=== PATIENT | female | born 1980 | race American Indian/Alaskan Native ===

== ENCOUNTER 2019-01-22 20:20 | Emergency (ER) | payer SELFPAY ==
[2019-01-22 20:46] VITALS: RESP 20
[2019-01-22] MEDS ORDERED: Sodium Chloride 0.9% 1,000 ML IV ONE (22:05)
--- NOTE | 2019-01-22 22:09 | C.PDOC ---
History Of Present Illness 38 y/o female presents to the ED complaining of colicky epigastric pain radiating to her back since earlier this afternoon. Patient states she took Imodium and Excedrin without any relief. She admits she had similar symptoms last week, and soon after developed diarrhea. Patient reports diet consists of pancakes, banana, pasta, and corn in the last 24 hours. She denies having any vomiting, diarrhea, or urinary complaints today. No fever or chills. Time Seen by Provider: 01/22/19 21:58 Chief Complaint (Nursing): Chest Pain History Per: Patient History/Exam Limitations: no limitations Onset/Duration Of Symptoms: Hrs Current Symptoms Are (Timing): Still Present Past Medical History Reviewed: Historical Data, Nursing Documentation, Vital Signs Vital Signs: Last Vital Signs Temp 97.8 F 01/22/19 20:43 Pulse 105 H 01/22/19 20:43 Resp 20 01/22/19 20:43 BP 128/71 01/22/19 20:43 Pulse Ox 97 01/22/19 20:43 - Medical History PMH: No Chronic Diseases Other Surgeries: Breast augmentation Family History: States: Unknown Family Hx - Social History Hx Tobacco Use: No Hx Alcohol Use: No Hx Substance Use: No - Immunization History Hx Tetanus Toxoid Vaccination: No Hx Influenza Vaccination: No Hx Pneumococcal Vaccination: No Review Of Systems Constitutional: Negative for: Fever, Chills Cardiovascular: Negative for: Chest Pain Respiratory: Negative for: Shortness of Breath Gastrointestinal: Positive for: Abdominal Pain. Negative for: Nausea, Vomiting, Diarrhea Genitourinary: Negative for: Dysuria, Frequency, Incontinence Musculoskeletal: Positive for: Back Pain Neurological: Negative for: Weakness, Dizziness Physical Exam - Physical Exam Appears: Non-toxic, No Acute Distress, Other (Thin black female, sleeping on arrival but easily aroused) Skin: Warm, Dry, No Rash Head: Atraumatic, Normacephalic Eye(s): bilateral: Normal Inspection, PERRL, EOMI Nose: Normal Oral Mucosa: Moist Neck: Normal ROM Chest: Symmetrical Cardiovascular: Rhythm Regular, No Murmur Respiratory: Normal Breath Sounds, No Accessory Muscle Use Gastrointestinal/Abdominal: Soft, Tenderness (Vaguely tender throughout, nonfocal), No Distention, No Guarding, No Rebound Back: No CVA Tenderness, No Vertebral Tenderness Extremity: Bilateral: Atraumatic, Normal Color And Temperature Pulses: Left Dorsalis Pedis: Normal, Right Dorsalis Pedis: Normal Neurological/Psych: Oriented x3 ED Course And Treatment - Laboratory Results Result Diagrams: 01/22/19 22:26 01/22/19 22:26 Lab Interpretation: Normal (ua neg.) Urine POC: Negative O2 Sat by Pulse Oximetry: 97 (RA) Pulse Ox Interpretation: Normal - Radiology CXR: Interpreted by Me CXR Interpretation: Yes: No Acute Disease - Other Rad abd x 2 X-Ray: Interpreted by Me (+FOS) Progress Note: Labs, EKG, and obstructive series ordered. Patient given 1L IV fluids and 30 mg IV toradol. Medical Decision Making Medical Decision Making: abd colic, constipation worse with imodium PO diet related Disposition Doctor Will See Patient In The: Office Counseled Patient/Family Regarding: Studies Performed, Diagnosis - Disposition Disposition: HOSPITALIZED Disposition Time: 23:10 Condition: GOOD Forms: [facility] (Hungarian) - Clinical Impression Clinical Impression: Abdominal pain, colicky - Scribe Statement The provider has reviewed the documentation as recorded by the Naif Villaseñor Provider Attestation: All medical record entries made by the Naif were at my direction and personally dictated by me. I have reviewed the chart and agree that the record accurately reflects my personal performance of the history, physical exam, medical decision making, and the department course for this patient. I have also personally directed, reviewed, and agree with the discharge instructions and disposition.
[2019-01-22] MEDS ORDERED: Sodium Chloride 0.9% 1,000 ML ONE (22:28)
[2019-01-22 22:37] LABS: EOS # 0.1 K/uL (0.0-0.7); EOS % 1.4 % (0.0-4.0); HEMOGLOBIN 13.1 g/dL (11.0-16.0); LYMPH # 1.9 K/uL (1.0-4.3); LYMPH % 40.7 % (20.0-40.0); MEAN CELL VOLUME 83.6 fL (81.0-99.0); MEAN CORPUSCULAR HGB CONC 32.3 g/dL (33.0-37.0); MEAN PLATELET VOLUME 7.3 fL (7.2-11.7); MONO # 0.4 K/uL (0.0-0.8); MONO % 7.7 % (0.0-10.0); NEUT # 2.3 K/uL (1.8-7.0); NEUT % 49.2 % (50.0-75.0); NRBC % 0.1 % (0.0-2.0); RBC 4.85 Mil/uL (3.80-5.20); RED CELL DISTRIBUTION WIDTH 13.3 % (11.5-14.5); WHITE BLOOD COUNT 4.8 K/uL (4.8-10.8)
[2019-01-22 22:38] LABS: HCG,QUALITATIVE URINE NEGATIVE (NEGATIVE)
[2019-01-22 22:42] LABS: SQUAMOUS EPITHIAL 2 /hpf (0-5); URINE BACTERIA RARE (<OCC)
[2019-01-22 22:43] LABS: URINE BILIRUBIN NEGATIVE (NEGATIVE); URINE BLOOD NEGATIVE (NEGATIVE); URINE CLARITY Clear (Clear); URINE COLOR Yellow (YELLOW); URINE GLUCOSE (UA) NORMAL (Normal); URINE LEUKOCYTE ESTERASE NEG Leu/uL (Negative); URINE PROTEIN NEGATIVE (NEGATIVE)
[2019-01-22 22:50] LABS: ALB/GLOB RATIO 1.3 (1.0-2.1); ALBUMIN 4.2 g/dL (3.5-5.0); ALT/SGPT 14 U/L (9-52); AST/SGOT 21 U/L (14-36); BLOOD UREA NITROGEN 9 mg/dL (7-17); CALCIUM 9.2 mg/dl (8.6-10.4); GFR NON-AFRICAN AMERICAN > 60; LIPASE 81 U/L (23-300)
[2019-01-22] MEDS ORDERED: Magnesium Citrate Oral SOL (300 ml) PO ONE (23:10)
[2019-01-22] MEDS ORDERED: Magnesium Citrate Oral SOL (300 ml) ONE (23:25)
[2019-01-22 23:37] VITALS: BP 122/78; PULSE 88; TEMP 98; O2SAT 98
--- NOTE | 2019-01-23 09:54 | RAD ---
Date of service: 01/22/2019 PROCEDURE: Radiographs of the chest and abdomen (obstructive series) HISTORY: abd pain COMPARISON: No prior. TECHNIQUE: AP radiograph of the chest, with upright and supine radiographs of the abdomen. FINDINGS: CHEST: Lungs: The lungs are well inflated and clear. Cardiovascular: Normal size heart. No pulmonary vascular congestion. No aortic atherosclerotic calcification present Pleura: No pleural fluid. No pneumothorax. Other findings: None. ABDOMEN AND PELVIS: Bowel: There is large amount of stool in the colon and rectum. Bowel gas pattern is nonobstructive. Free air: None. Bones: Unremarkable. Other findings: An IUD overlies the pelvis. IMPRESSION: Constipation. Nonobstructive bowel gas pattern. Clear lungs.
--- NOTE | 2019-01-24 20:07 | CARD ---
APPROVED REPORT Date of service: 01/22/2019 EKG Measurement Heart [id number] <Conclusion> Normal sinus rhythm Incomplete right bundle branch block Borderline ECG
== END 2019-01-22 23:46 | disposition home or self-care (01) ==
LOC: C.ER 20:20
DX: R10.84 Generalized abdominal pain (principal)
CPT/HCPCS: 74022; 80053; 81001; 83690; 84484; 84703; 85025; 93005; 96361; 96374; 99284; J1885; J7030

== ENCOUNTER 2019-02-11 07:12 | Outpatient (CLI) | payer BC | END 2019-02-11 07:13 | disposition home or self-care (01) | LOC: C.CARD 07:12 ==